=== PATIENT | female | born 1995 ===

== ENCOUNTER 2019-12-26 05:22 | Inpatient (IN) | payer MEDICAID ==
[2019-12-26] MEDS ORDERED: ceFAZolin 2 GM in Premix Bag 1 BAG IV ONE (05:23)
[2019-12-26] MEDS ORDERED: Sodium Chloride 0.9% 2.5 ML Syringe FLUSH PRN (05:23)
[2019-12-26] MEDS ORDERED: Sodium Chloride 0.9% 10 ML Syringe FLUSH PRN (05:23)
[2019-12-26] MEDS ORDERED: Citric Acid/Sodium Citrate Solution 30 ML Cup PO ONE (05:23)
[2019-12-26] MEDS ORDERED: Sodium Chloride 0.9% 10 ML SDV IV PRN (05:23)
[2019-12-26] MEDS ORDERED: Oxytocin/0.9 % Sodium Chloride 30 UNIT/500 ML BAG IV SCH (05:30)
[2019-12-26] MEDS: Lactated Ringers 1,000 ML IV SCH ×5 (06:00→20:21)
[2019-12-26] MEDS ORDERED: Morphine PF 10 MG/10 ML SDV ONE (06:58)
[2019-12-26] MEDS ORDERED: Ketorolac 30 MG/ML SDV ONE (07:04)
[2019-12-26] MEDS ORDERED: Phenylephrine 1% 10 MG/ML SDV ONE (07:04)
[2019-12-26] MEDS ORDERED: ceFAZolin 1 GM Vial ONE (07:04)
[2019-12-26] MEDS ORDERED: Ondansetron 4 MG/2 ML SDV ONE (07:04)
[2019-12-26] MEDS ORDERED: Sodium Chloride 0.9% 20 ML ONE (07:04)
[2019-12-26] MEDS ORDERED: Oxytocin 10 Units/1 ML SDV ONE (07:04)
--- NOTE | 2019-12-26 07:07 | PCM.PREANE ---
Preanesthetic Assessment - Anesthesia/Transfusion/Family Hx Anesthesia History: Prior Anesthesia Without Reaction Family History of Anesthesia Reaction: No Transfusion History: No Prior Transfusion(s) Intubation History: Unknown - Review of Systems General: No Symptoms Pulmonary: No Symptoms Cardiovascular: No Symptoms Gastrointestinal: No Symptoms Neurological: No Symptoms Other: Reports: None - Physical Assessment Height: 5 ft 3.5 in Weight: 90.265 kg ASA Class: 2 Mental Status: Alert & Oriented x3 Airway Class: Mallampati = 2 Dentition: Reports: Normal Dentition Thyro-Mental Finger Breadths: 3 Mouth Opening Finger Breadths: 3 ROM/Head Extension: Full Lungs: Clear to Auscultation, Normal Respiratory Effort Cardiovascular: Regular Rate, Regular Rhythm - Lab Values: Laboratory Last Values WBC 12.56 K/uL (4.0-11.0) H 12/26/19 05:44 RBC 4.15 M/uL (4.30-5.90) L 12/26/19 05:44 Hgb 12.3 g/dL (12.0-16.0) 12/26/19 05:44 Hct 37.4 % (36.0-46.0) 12/26/19 05:44 MCV 90.1 fL (80.0-98.0) 12/26/19 05:44 MCH 29.6 pg (27.0-32.0) 12/26/19 05:44 MCHC 32.9 g/dL (31.0-37.0) 12/26/19 05:44 RDW Std Deviation 45.8 fl (28.0-62.0) 12/26/19 05:44 RDW Coeff of Liana 14 % (11.0-15.0) 12/26/19 05:44 Plt Count 211 K/uL (150-400) 12/26/19 05:44 MPV 11.40 fL (7.40-12.00) 12/26/19 05:44 Nucleated RBC % 0.0 /100WBC 12/26/19 05:44 Nucleated RBCs # 0 K/uL 12/26/19 05:44 Blood Type A POSITIVE 12/26/19 05:50 Antibody Screen NEGATIVE 12/26/19 05:50 - Allergies Allergies/Adverse Reactions: Allergies Allergy/AdvReac Type Severity Reaction Status Date / Time late Allergy Burning Uncoded 12/20/19 08:38 - Blood Blood Available: No - Anesthesia Plan Pre-Op Medication Ordered: None - Acknowledgements Anesthesia Type Planned: Spinal (general anesthesia back-up plan) Pt an Appropriate Candidate for the Planned Anesthesia: Yes Alternatives and Risks of Anesthesia Discussed w Pt/Guardian: Yes Pt/Guardian Understands and Agrees with Anesthesia Plan: Yes PreAnesthesia Questionnaire HEENT History: Reports: None Cardiovascular History: Reports: None Respiratory History: Reports: None Gastrointestinal History: Reports: None Genitourinary History: Reports: None EGG PROCESSOR History: Reports: Musculoskeletal History: Reports: None Neurological History: Reports: None Psychiatric History: Reports: None Endocrine/Metabolic History: Reports: None Hematologic History: Reports: None Dermatologic History: Reports: None - Past Surgical History Head Surgeries/Procedures: Reports: None HEENT Surgical History: Reports: None Cardiovascular Surgical History: Reports: None Female Surgical History: Reports: None, Section (x3) - SUBSTANCE USE Tobacco Use Status *Q: Never Tobacco User Second Hand Smoke Exposure: No Recreational Drug Use History: No - HOME MEDS Home Medications: Home Meds Acetaminophen [Tylenol Extra Strength] 500 mg PO ASDIRECTED PRN 12/03/19 [History] Pnv No.95/Ferrous Fum/Folic AC [ Caplet] 1 tab PO ASDIRECTED 12/20/19 [History] - CURRENT (IN HOUSE) MEDS Current Meds: Current Medications Oxytocin/Sodium Chloride (Oxytocin 30 Unit/500 Ml-Ns) 30 unit in 500 mls @ 250 mls/hr IV TITRATE JESSEE Lactated Ringer's (Ringers, Lactated) 1,000 mls @ 500 mls/hr IV BOLUS [facility] Last Admin: 12/26/19 06:37 Dose: 500 mls/hr Documented by: Sodium Chloride (Saline Flush) 10 ml FLUSH ASDIRECTED PRN PRN Reason: Keep Vein Open Sodium Chloride (Saline Flush) 2.5 ml FLUSH ASDIRECTED PRN PRN Reason: Keep Vein Open Sodium Chloride (Normal Saline) 10 ml IV ASDIRECTED PRN PRN Reason: IV Use Discontinued Medications Citric Acid/Sodium Citrate (Bicitra Solution) 30 ml PO ONETIME ONE Stop: 12/26/19 05:24 Cefazolin Sodium/Dextrose 2 gm (/ Premix) 50 mls @ 100 mls/hr IV ONETIME ONE Stop: 12/26/19 05:52 Morphine Sulfate (Duramorph Pf) Confirm Administered Dose 10 mg .ROUTE .STK-MED ONE Stop: 12/26/19 06:59
[2019-12-26] MEDS ORDERED: Midazolam 1 MG/ML 2 ML SDV ONE (08:40)
[2019-12-26] MEDS ORDERED: diphenhydrAMINE 50 MG/ML SDV IVPUSH PRN (08:57)
[2019-12-26] MEDS ORDERED: Tranexamic Acid 1,000 MG in Sodium Chloride 0.9% 100 ML IV PRN (08:57)
[2019-12-26] MEDS ORDERED: Lanolin 100% Cream 7 GM Tube TOP PRN (08:57)
[2019-12-26] MEDS ORDERED: Ondansetron 4 MG/2 ML SDV IVPUSH PRN (08:57)
[2019-12-26] MEDS ORDERED: Misoprostol 200 MCG Tab RECTAL PRN (08:57)
[2019-12-26] MEDS ORDERED: Methylergonovine 0.2 MG/1 ML Amp IM PRN (08:57)
[2019-12-26] MEDS ORDERED: Oxytocin 10 Units/1 ML SDV IM PRN (08:57)
[2019-12-26] MEDS ORDERED: Acetaminophen/oxyCODONE 325-5 MG Tab PO PRN (08:57)
[2019-12-26] MEDS ORDERED: Bisacodyl 10 MG Supp RECTAL PRN (08:57)
--- NOTE | 2019-12-26 09:04 | PCM.OPNOTE ---
- General Post-Op/Procedure Note Date of Surgery/Procedure: 12/26/19 Operative Procedure(s): Repeat LTCS Findings: Viable female AGPARs 9, 9 weight 3115 gm. Intact placenta with 3V cord Pre Op Diagnosis: 39 week IUP. Previous c section x 3, desires repeat Post-Op Diagnosis: Same Anesthesia Technique: Spinal Primary Surgeon: Salena Carmen Fluid Replacement, Intraop: 2,000 EBL in mLs: 600 Complications: none known Condition: Stable Free Text/Narrative:: Dictation [id number]
[2019-12-26] MEDS: Ketorolac 30 MG/ML SDV IVPUSH SCH ×3 (09:15→22:22)
[2019-12-26] MEDS: Docusate Sodium 100 MG Cap PO SCH ×2 (09:32→21:12)
--- NOTE | 2019-12-26 09:40 | PCM.POSTAN ---
POST ANESTHESIA ASSESSMENT - MENTAL STATUS Mental Status: Alert - RESPIRATORY Respiratory Status: Respiratory Rate WNL - CARDIOVASCULAR CV Status: Pulse Rate WNL - GASTROINTESTINAL GI Status: No Symptoms - POST OP HYDRATION Hydration Status: Adequate & Stable
--- NOTE | 2019-12-26 12:10 | OR ---
SURGEON: Salena Carmen M.D. DATE OF PROCEDURE: 12/26/2019 PREOPERATIVE DIAGNOSES: 1. A 39-week intrauterine . 2. Previous section x3, desires repeat. POSTOPERATIVE DIAGNOSES: 1. A 39-week intrauterine . 2. Previous section x3, desires repeat. PROCEDURE: Repeat low transverse section. PRIMARY SURGEON: Salena Carmen MD ANESTHESIA: Spinal. ESTIMATED BLOOD LOSS: 600 mL. FLUIDS: 2000 mL of crystalloid. COMPLICATIONS: None known. FINDINGS: Viable female. score of 9 at one minute and 9 at five minutes. Weight 3115 g. Delivery, intact placenta, 3-vessel cord. DISPOSITION: to nursery, mom in PACU, stable. PROCEDURE DETAILS: Lam is a 24-year-old, G4, P3, at 39 weeks' gestation, who presents this morning for scheduled repeat delivery. Risks of procedure have been discussed. Proper consent obtained. She was COVID negative. The patient was taken to the operating room where she underwent spinal anesthetic. She was then placed in dorsal supine position with leftward tilt. SCDs to lower extremities. Rivera to gravity. Was prepped and draped in usual sterile fashion. She received Ancef prophylactically. Time-out was performed. Anesthesia was tested, it was found to be adequate. Therefore, previous Pfannenstiel scar was now excised. Subcutaneous tissue was incised down to the level of the rectus fascia, which was incised in the midline, lateralized on either side sharply and bluntly. Superior aspect of the fascia was tented upward, dissected sharply and bluntly away from underlying muscle. In a similar aspect, this was performed with the inferior aspect of fascia. Rectus muscle was in the midline. Peritoneum was entered. Rectus muscle and peritoneum were now lateralized bluntly. There was a fair amount of uterovesical adhesions noted. Self-retaining retractor gently placed. The uterovesical adhesions were now gently lysed sharply and bluntly. Bladder was mobilized away from lower uterine segment. Low transverse hysterotomy was now performed. Uterine cavity was entered with blunt-ended scalpel. Hysterotomy was lateralized bluntly. Clear amniotic fluid was returned. The 's head was flexed and delivered from the pelvis. Fundal pressure was applied. The infant's head was delivered followed by anterior shoulder, posterior shoulder, and remainder of the body without difficulty. The infant's oropharynx and nares were bulb suctioned. Cord was clamped x2 and cut. was handed off to attending nursery staff. Cord arterial, cord venous, cord blood sampling was obtained. The placenta was now delivered. Uterine cavity was cleared of all clot and debris. Hysterotomy was repaired using 0 Vicryl in continuous running locked fashion followed by re-imbricating layer. Any areas of oozing were cauterized. The posterior aspect of the uterus was inspected. No defects or hematomas were found be forming. Region was well irrigated, suction dried. Uterus was returned to the abdominal cavity. Colonic gutters were cleared of all clot and debris, well irrigated, suction dried. Hysterotomy once again inspected, found to be hemostatic. Self-retaining retractor now gently removed. Bladder blade placed. Hysterotomy once again inspected. Area of bleeding along the midline was replicated with a [id number] suture. Hemostasis thereafter evident. Uterus remained firm. The rectus muscle and peritoneum were now reapproximated using 0 Vicryl with inverted mattress suture technique. Anterior aspect of the muscle, posterior aspect of the fascia closely inspected. Any areas of oozing were cauterized. Rectus fascia was now reapproximated using 0 Vicryl in continuous running fashion, beginning laterally on either side and meeting in the midline. Subcutaneous tissues copiously irrigated. Areas of bleeding along the subcutaneous tissue were now cauterized. Hemostasis appeared evident. Region once again irrigated. Skin edges were reapproximated using 3-0 Vicryl on a Shubham needle in subcuticular fashion followed by re-imbrication with half-inch Steri-Strips and Mastisol. Sponge, instrument, and needle count was correct x3. The patient tolerated the procedure well overall. She will go to PACU in stable condition, to nursery. [place]STER / FLO /[id number]
[2019-12-26] MEDS ORDERED: Naloxone 0.4 MG/ML Syringe IVPUSH ONE (12:33)
[2019-12-26] MEDS: Simethicone 80 MG Tab.Chew PO SCH (13:05)
[2019-12-26] MEDS ORDERED: Naloxone 0.4 MG/ML Syringe IVPUSH PRN (17:54)
[2019-12-27] MEDS: Simethicone 80 MG Tab.Chew PO SCH ×5 (00:17→20:40)
[2019-12-27] MEDS: Ketorolac 30 MG/ML SDV IVPUSH SCH ×2 (04:23→10:49)
--- NOTE | 2019-12-27 07:51 | PCM48HPAN ---
Post Anesthesia Note - EVALUATION WITHIN 48HRS OF ANESTHETIC Vital Signs in Normal Range: Yes Patient Participated in Evaluation: Yes Respiratory Function Stable: Yes Airway Patent: Yes Cardiovascular Function Stable: Yes Hydration Status Stable: Yes Pain Control Satisfactory: Yes Nausea and Vomiting Control Satisfactory: Yes Mental Status Recovered: Yes Vital Signs: Last Vital Signs Temp 36.3 C 12/27/19 04:00 Pulse 96 12/27/19 06:00 Resp 16 12/27/19 06:00 BP 100/51 L 12/27/19 04:00 Pulse Ox 97 12/27/19 06:00
[2019-12-27] MEDS: Docusate Sodium 100 MG Cap PO SCH ×2 (10:48→20:21)
--- NOTE | 2019-12-27 12:37 | PCM.PNPP ---
- General Info Date of Service: 12/27/19 Functional Status: Reports: Pain Controlled, Tolerating Diet, Ambulating, Urinating - Review of Systems General: Reports: Fatigue. Denies: Fever, Weakness Pulmonary: Denies: Shortness of Breath Cardiovascular: Denies: Chest Pain, Palpitations, Lightheadedness Gastrointestinal: Reports: Abdominal Pain (incisional, mild). Denies: Nausea, Vomiting Genitourinary: Denies: Flank Pain Musculoskeletal: Reports: No Symptoms Skin: Reports: No Symptoms Neurological: Reports: No Symptoms Psychiatric: Reports: No Symptoms - General Info Date of Service: 12/27/19 - Patient Data Vital Signs - Most Recent: Last Vital Signs Temp 36.6 C 12/27/19 09:00 Pulse 89 12/27/19 11:52 Resp 18 12/27/19 11:52 BP 118/61 12/27/19 11:52 Pulse Ox 97 12/27/19 11:52 Weight - Most Recent: 90.265 kg I&O - Last 24 Hours: Intake & Output 12/26/19 12/27/19 12/27/19 22:59 06:59 14:59 Output Total 1350 1000 Balance -1350 -1000 Lab Results - Last 24 Hours: Laboratory Results - last 24 hr 12/27/19 Range/Units 06:15 Hgb 10.7 L (12.0-16.0) g/dL Hct 32.8 L (36.0-46.0) % Med Orders - Current: Current Medications Bisacodyl (Dulcolax) 10 mg RECTAL ONETIME PRN PRN Reason: Constipation Diphenhydramine HCl (Benadryl) 25 mg IVPUSH Q6H PRN PRN Reason: Itching or Nausea Last Admin: 12/26/19 10:03 Dose: 25 mg Documented by: Docusate Sodium (Colace) 100 mg PO BID JESSEE Last Admin: 12/27/19 10:48 Dose: 100 mg Documented by: Emollient Ointment (Lansinoh Hpa) 0 gm TOP ASDIRECTED PRN PRN Reason: Sore Nipples Oxytocin/Sodium Chloride (Oxytocin 30 Unit/500 Ml-Ns) 30 unit in 500 mls @ 250 mls/hr IV TITRATE JESSEE Lactated Ringer's (Ringers, Lactated) 1,000 mls @ 500 mls/hr IV BOLUS JESSEE Last Admin: 12/26/19 06:37 Dose: 500 mls/hr Documented by: Lactated Ringer's (Ringers, Lactated) 1,000 mls @ 125 mls/hr IV ASDIRECTED [facility] Last Admin: 12/26/19 20:21 Dose: 125 mls/hr Documented by: Tranexamic Acid 1,000 mg/ (Sodium Chloride) 110 mls @ 660 mls/hr IV ONETIME PRN PRN Reason: Bleeding Ibuprofen (Motrin) 800 mg PO Q8H PRN PRN Reason: mild pain or fever Methylergonovine Maleate (Methergine) 0.2 mg IM ONETIME PRN PRN Reason: Excessive Vaginal Bleeding Misoprostol (Cytotec) 1,000 mcg RECTAL ONETIME PRN PRN Reason: excessive bleeding Naloxone HCl (Narcan) 0.04 mg IVPUSH .15MIN PRN PRN Reason: PRURITIS Ondansetron HCl (Zofran) 4 mg IVPUSH Q4H PRN PRN Reason: Nausea/Vomiting Oxycodone/Acetaminophen (Percocet 325-5 Mg) 1 tab PO Q4H PRN PRN Reason: Pain (moderate 4-6) Oxycodone/Acetaminophen (Percocet 325-5 Mg) 2 tab PO Q4H PRN PRN Reason: Pain (moderate 4-6) Oxytocin (Pitocin) 10 unit IM ASDIRECTED PRN PRN Reason: Excessive Vaginal Bleeding Simethicone (Simethicone) 160 mg PO QID [facility] Last Admin: 12/27/19 12:16 Dose: 160 mg Documented by: Sodium Chloride (Saline Flush) 10 ml FLUSH ASDIRECTED PRN PRN Reason: Keep Vein Open Sodium Chloride (Saline Flush) 2.5 ml FLUSH ASDIRECTED PRN PRN Reason: Keep Vein Open Sodium Chloride (Normal Saline) 10 ml IV ASDIRECTED PRN PRN Reason: IV Use Discontinued Medications Cefazolin Sodium (Ancef) Confirm Administered Dose 2 gm .ROUTE .STK-MED ONE Stop: 12/26/19 07:05 Citric Acid/Sodium Citrate (Bicitra Solution) 30 ml PO ONETIME ONE Stop: 12/26/19 05:24 Last Admin: 12/26/19 07:45 Dose: 30 ml Documented by: Cefazolin Sodium/Dextrose 2 gm (/ Premix) 50 mls @ 100 mls/hr IV ONETIME ONE Stop: 12/26/19 05:52 Last Admin: 12/26/19 09:33 Dose: Not Given Documented by: Sodium Chloride (Normal Saline) Confirm Administered Dose 20 mls @ as directed .ROUTE .STK-MED ONE Stop: 12/26/19 07:05 Ketorolac Tromethamine (Toradol) Confirm Administered Dose 30 mg .ROUTE .STK-MED ONE Stop: 12/26/19 07:05 Ketorolac Tromethamine (Toradol) 30 mg IVPUSH Q6H JESSEE Stop: 12/27/19 09:01 Last Admin: 12/27/19 10:49 Dose: 30 mg Documented by: Lidocaine HCl (Xylocaine-Mpf 1%) Confirm Administered Dose 5 ml .ROUTE .STK-MED ONE Stop: 12/26/19 08:00 Midazolam HCl (Versed 1 Mg/Ml) Confirm Administered Dose 2 mg .ROUTE .STK-MED ONE Stop: 12/26/19 08:41 Morphine Sulfate (Duramorph Pf) Confirm Administered Dose 10 mg .ROUTE .STK-MED ONE Stop: 12/26/19 06:59 Naloxone HCl (Narcan) 0.04 mg IVPUSH ONETIME ONE Stop: 12/26/19 12:34 Last Admin: 12/26/19 13:12 Dose: 0.04 mg Documented by: Ondansetron HCl (Zofran) Confirm Administered Dose 4 mg .ROUTE .STK-MED ONE Stop: 12/26/19 07:05 Oxytocin (Pitocin) Confirm Administered Dose 20 unit .ROUTE .STK-MED ONE Stop: 12/26/19 07:05 Phenylephrine HCl (Aldair-Synephrine) Confirm Administered Dose 10 mg .ROUTE .STK- MED ONE Stop: 12/26/19 07:05 - Infant Interaction Support Person: Significant Other - Recovery Exam Fundal Tone: Firm Fundal Level: 3 Fingerbreadths Below Umbilicus Fundal Placement: Midline Lochia Amount: Scant Lochia Color: Rubra/Red Perineum Description: Intact, Minimal Bruising/Swelling Episiotomy/Laceration: None Bladder Status: Indwelling Catheter in Place Urinary Elimination: Indwelling Catheter - Exam General: Alert, Oriented HEENT: Pupils Equal Lungs: Normal Respiratory Effort Cardiovascular: Regular Rate, Regular Rhythm GI/Abdominal Exam: Normal Bowel Sounds, Soft, No Distention Extremities: Pedal Edema (1+). No: Patel's Sign Skin: Warm, Dry, Intact Wound/Incisions: Healing Well, Dressing Dry and Intact Neurological: No New Focal Deficit Psy/Mental Status: Alert, Normal Affect, Normal Mood - Problem List & Annotations (1) S/P repeat low transverse SNOMED Code(s): 185015077, 66520831, 552373061, 510228582, 480903854 Code(s): Z98.891 - HISTORY OF UTERINE SCAR FROM PREVIOUS SURGERY Status: Acute Current Visit: Yes - Problem List Review Problem List Initiated/Reviewed/Updated: Yes - My Orders Last 24 Hours: My Active Orders 12/26/19 12:00 Simethicone 160 mg PO QID - Assessment Assessment:: POD 1 status post repeat c section Ambulate halls today, continue postoperative cares.
[2019-12-27] MEDS: Acetaminophen/oxyCODONE 325-5 MG Tab PO PRN ×2 (16:16→20:21)
[2019-12-27] MEDS: Ibuprofen 800 MG Tab PO PRN (20:20)
[2019-12-28] MEDS: Simethicone 80 MG Tab.Chew PO SCH ×2 (00:19→06:09)
[2019-12-28] MEDS: Acetaminophen/oxyCODONE 325-5 MG Tab PO PRN ×2 (00:25→04:34)
[2019-12-28] MEDS: Ibuprofen 800 MG Tab PO PRN (04:34)
--- NOTE | 2019-12-28 09:46 | PCM.PNPP ---
- General Info Date of Service: 12/28/19 Functional Status: Reports: Pain Controlled, Tolerating Diet, Ambulating, Urinating - Review of Systems General: Denies: Fever, Weakness, Fatigue Pulmonary: Denies: Shortness of Breath Cardiovascular: Denies: Chest Pain, Palpitations, Lightheadedness Gastrointestinal: Reports: Abdominal Pain (mainly cramping while ). Denies: Nausea, Vomiting Genitourinary: Denies: Flank Pain Musculoskeletal: Reports: No Symptoms Skin: Reports: No Symptoms Neurological: Reports: No Symptoms Psychiatric: Reports: No Symptoms - General Info Date of Service: 12/28/19 - Patient Data Vital Signs - Most Recent: Last Vital Signs Temp 36.1 C 12/28/19 04:30 Pulse 75 12/28/19 04:30 Resp 14 12/28/19 04:30 BP 113/65 12/28/19 04:30 Pulse Ox 96 12/28/19 04:30 Weight - Most Recent: 90.265 kg Med Orders - Current: Current Medications Bisacodyl (Dulcolax) 10 mg RECTAL ONETIME PRN PRN Reason: Constipation Diphenhydramine HCl (Benadryl) 25 mg IVPUSH Q6H PRN PRN Reason: Itching or Nausea Last Admin: 12/26/19 10:03 Dose: 25 mg Documented by: Docusate Sodium (Colace) 100 mg PO BID [facility] Last Admin: 12/27/19 20:21 Dose: 100 mg Documented by: Emollient Ointment (Lansinoh Hpa) 0 gm TOP ASDIRECTED PRN PRN Reason: Sore Nipples Oxytocin/Sodium Chloride (Oxytocin 30 Unit/500 Ml-Ns) 30 unit in 500 mls @ 250 mls/hr IV TITRATE [facility] Lactated Ringer's (Ringers, Lactated) 1,000 mls @ 500 mls/hr IV BOLUS [facility] Last Admin: 12/26/19 06:37 Dose: 500 mls/hr Documented by: Lactated Ringer's (Ringers, Lactated) 1,000 mls @ 125 mls/hr IV ASDIRECTED [facility] Last Admin: 12/26/19 20:21 Dose: 125 mls/hr Documented by: Tranexamic Acid 1,000 mg/ (Sodium Chloride) 110 mls @ 660 mls/hr IV ONETIME PRN PRN Reason: Bleeding Ibuprofen (Motrin) 800 mg PO Q8H PRN PRN Reason: mild pain or fever Last Admin: 12/28/19 04:34 Dose: 800 mg Documented by: Methylergonovine Maleate (Methergine) 0.2 mg IM ONETIME PRN PRN Reason: Excessive Vaginal Bleeding Misoprostol (Cytotec) 1,000 mcg RECTAL ONETIME PRN PRN Reason: excessive bleeding Naloxone HCl (Narcan) 0.04 mg IVPUSH .15MIN PRN PRN Reason: PRURITIS Ondansetron HCl (Zofran) 4 mg IVPUSH Q4H PRN PRN Reason: Nausea/Vomiting Oxycodone/Acetaminophen (Percocet 325-5 Mg) 1 tab PO Q4H PRN PRN Reason: Pain (moderate 4-6) Last Admin: 12/28/19 04:34 Dose: 1 tab Documented by: Oxycodone/Acetaminophen (Percocet 325-5 Mg) 2 tab PO Q4H PRN PRN Reason: Pain (moderate 4-6) Oxytocin (Pitocin) 10 unit IM ASDIRECTED PRN PRN Reason: Excessive Vaginal Bleeding Simethicone (Simethicone) 160 mg PO QID JESSEE Last Admin: 12/28/19 06:09 Dose: 160 mg Documented by: Sodium Chloride (Saline Flush) 10 ml FLUSH ASDIRECTED PRN PRN Reason: Keep Vein Open Sodium Chloride (Saline Flush) 2.5 ml FLUSH ASDIRECTED PRN PRN Reason: Keep Vein Open Sodium Chloride (Normal Saline) 10 ml IV ASDIRECTED PRN PRN Reason: IV Use Discontinued Medications Cefazolin Sodium (Ancef) Confirm Administered Dose 2 gm .ROUTE .STK-MED ONE Stop: 12/26/19 07:05 Citric Acid/Sodium Citrate (Bicitra Solution) 30 ml PO ONETIME ONE Stop: 12/26/19 05:24 Last Admin: 12/26/19 07:45 Dose: 30 ml Documented by: Cefazolin Sodium/Dextrose 2 gm (/ Premix) 50 mls @ 100 mls/hr IV ONETIME ONE Stop: 12/26/19 05:52 Last Admin: 12/26/19 09:33 Dose: Not Given Documented by: Sodium Chloride (Normal Saline) Confirm Administered Dose 20 mls @ as directed .ROUTE .STK-MED ONE Stop: 12/26/19 07:05 Ketorolac Tromethamine (Toradol) Confirm Administered Dose 30 mg .ROUTE .STK-MED ONE Stop: 12/26/19 07:05 Ketorolac Tromethamine (Toradol) 30 mg IVPUSH Q6H JESSEE Stop: 12/27/19 09:01 Last Admin: 12/27/19 10:49 Dose: 30 mg Documented by: Lidocaine HCl (Xylocaine-Mpf 1%) Confirm Administered Dose 5 ml .ROUTE .STK-MED ONE Stop: 12/26/19 08:00 Midazolam HCl (Versed 1 Mg/Ml) Confirm Administered Dose 2 mg .ROUTE .STK-MED ONE Stop: 12/26/19 08:41 Morphine Sulfate (Duramorph Pf) Confirm Administered Dose 10 mg .ROUTE .STK-MED ONE Stop: 12/26/19 06:59 Naloxone HCl (Narcan) 0.04 mg IVPUSH ONETIME ONE Stop: 12/26/19 12:34 Last Admin: 12/26/19 13:12 Dose: 0.04 mg Documented by: Ondansetron HCl (Zofran) Confirm Administered Dose 4 mg .ROUTE .STK-MED ONE Stop: 12/26/19 07:05 Oxytocin (Pitocin) Confirm Administered Dose 20 unit .ROUTE .STK-MED ONE Stop: 12/26/19 07:05 Phenylephrine HCl (Aldair-Synephrine) Confirm Administered Dose 10 mg .ROUTE .STK- MED ONE Stop: 12/26/19 07:05 - Infant Interaction Support Person: Significant Other - Recovery Exam Fundal Tone: Firm Fundal Level: 3 Fingerbreadths Below Umbilicus Fundal Placement: Midline Lochia Amount: Scant Lochia Color: Rubra/Red Perineum Description: Intact, Minimal Bruising/Swelling Episiotomy/Laceration: None Bladder Status: Voiding Urinary Elimination: Voided - Exam General: Alert, Oriented Lungs: Normal Respiratory Effort Cardiovascular: Regular Rate, Regular Rhythm GI/Abdominal Exam: Normal Bowel Sounds, Soft Extremities: Pedal Edema (trace). No: Patel's Sign Skin: Warm, Dry, Intact Wound/Incisions: Healing Well. No: Drainage, Erythema Neurological: No New Focal Deficit Psy/Mental Status: Alert, Normal Affect, Normal Mood - Problem List & Annotations (1) S/P repeat low transverse SNOMED Code(s): 991700017, 75930917, 313220154, 058783220, [id number] Code(s): Z98.891 - HISTORY OF UTERINE SCAR FROM PREVIOUS SURGERY Status: Acute Current Visit: Yes - Problem List Review Problem List Initiated/Reviewed/Updated: Yes - Assessment Assessment:: POD 2 status post repeat c section - Plan Plan:: Doing well overall, would like to go home today. Discharge instructions reviewed. Follow up at [facility] 2 and 4 weeks. Continue PNV daily. Discharge to home.
== END 2019-12-28 13:15 | disposition home or self-care (01) | DRG 788 ==
LOC: MW.OB 05:22
PROVIDERS: ADMIT Obstetrics & Gynecology; ATTEND Obstetrics & Gynecology
PROC: 10D00Z1 Extraction of Products of Conception, Low, Open Approach (ICD-10-PCS; principal; 2019-12-26)
DX: O34.211 Maternal care for low transverse scar from previous cesarean delivery (principal); Z37.0 Single live birth; Z3A.39 39 weeks gestation of pregnancy
CPT/HCPCS: 36415; 51702; 59025; 82803; 85014; 85018; 85027; 86592; 86850; 86900; 86901; A9270-GY; J0690; J1200; J1885; J2001; J2250; J2270; J2370; J2405; J2590; J7120